=== PATIENT | female | born 1970 | race Caucasian/White ===

== ENCOUNTER 2022-07-23 06:34 | Day surgery (SDC) | payer OTHER ==
[~2022-07-23] VITALS: Ht 149.9 cm; Wt 59.9 kg
[2022-07-23] MEDS ORDERED: fentaNYL citrate 0.05 MG/ML VIAL ONE (08:19)
[2022-07-23] MEDS ORDERED: LIDOCAINE 2% 100 MG/5 ML UJET TP ONE (08:19)
[2022-07-23] MEDS ORDERED: fentaNYL citrate 0.05 MG/ML VIAL IVP ONE (13:10)
== END 2022-07-23 12:14 | disposition home or self-care (01) ==
LOC: MOR 06:34 → MMU 06:38 → MOR 12:14
PROVIDERS: ATTEND Internal Medicine Gastroenterology
DX: Z12.11 Encounter for screening for malignant neoplasm of colon (principal); K57.30 Diverticulosis of large intestine without perforation or abscess without bleeding; I10 Essential (primary) hypertension; E11.9 Type 2 diabetes mellitus without complications; Z20.822 Contact with and (suspected) exposure to COVID-19; Z80.3 Family history of malignant neoplasm of breast; Z90.49 Acquired absence of other specified parts of digestive tract; Z79.899 Other long term (current) drug therapy
CPT/HCPCS: 45378; 87426; J3010